=== PATIENT | female | born 1995 | race African-American/Black ===

== ENCOUNTER 2017-05-27 18:18 | Emergency (ER) | payer MEDICAID ==
[~2017-05-27] VITALS: Ht 172.7 cm; Wt 99.8 kg
[2017-05-27 18:36] VITALS: BP 169/86
--- NOTE | 2017-05-27 19:49 | NUR ---
patient to er of1
--- NOTE | 2017-05-27 20:27 | NUR ---
er md dr Ascencio at bedside for eval
--- NOTE | 2017-05-27 20:30 | NUR ---
PT BIB SELF C/O SOB X3 DAYS AND INTERMITTENT CHEST PAIN. COUGH X 3-4 WEEKS. PT DENIES ANY TRAUMA. PT DENIES N/V/D; SKIN IS INTACT, PINK/WARM/DRY; AAOX4, PERRL, WITH EVEN AND STEADY GAIT; LUNGS CLEAR BL, BREATHING UNLABORED; HR EVEN AND REGULAR, BL PERIPHERAL PULSES PRESENT; BS ACTIVE X4, NO TENDERNESS TO PALPATION. PT DENIES ANY FEVER, SOB AT THIS TIME; PT STATES 3/10 PAIN AT THIS TIME; VSS; PATIENT POSITIONED FOR COMFORT; HOB ELEVATED; BEDRAILS UP X2; BED DOWN.
[2017-05-27 21:13] VITALS: BP 135/71
--- NOTE | 2017-05-27 21:13 | NUR ---
Patient discharged with v/s stable. Written and verbal after care instructions given and explained. Patient alert, oriented and verbalized understanding of instructions. Ambulatory with steady gait. All questions addressed prior to discharge. ID band removed. Patient advised to follow up with PMD. Rx of AZITHROMYCIN 250MG, PREDNISONE 20MG, ALBUTEROL HHN given. Patient educated on indication of medication including possible reaction and side effects. Opportunity to ask questions provided and answered.
== END 2017-05-27 21:13 | disposition home or self-care (01) ==
LOC: MED 18:18
CPT/HCPCS: 71020; 93005; 99284